=== PATIENT | male | born 1950 | race African-American/Black ===

== ENCOUNTER 2016-08-24 15:23 | Emergency (ER) | payer MEDICARE, OTHER ==
[~2016-08-24] VITALS: Ht 170.2 cm; Wt 85.4 kg
[~2016-08-24 15:23] MED LIST: ALFU10TA2 PO; CALC0.5C6 PO; DAPT500P IV; METO50TA PO; MIRT30TA PO; NIFE20CA PO; PERC5TAB12 PO; PRIL40CA PO; VIAG100T PO
[2016-08-24 16:24] VITALS: BP 115/67; PULSE 71; RESP 18; TEMP 97.8; O2SAT 97
[2016-08-24 16:27] VITALS: O2SAT 97
[2016-08-24] MEDS ORDERED: MIDO5TAB PO (16:57)
[2016-08-24] MEDS ORDERED: SEVEL800 PO (16:57)
[2016-08-24] MEDS ORDERED: ALFU10TA2 PO (16:57)
[2016-08-24 17:00] VITALS: BP 119/68; PULSE 80; RESP 18; O2SAT 97
--- NOTE | 2016-08-24 17:00 | PD ---
HPI Chief Complaint: Chest Pain Time Seen by Provider: 16:24 Travel History International Travel<30 days: No Contact w/Intl Traveler<30days: No Traveled to known affect area: No History of Present Illness HPI 65-year-old male complains of chest pain. Patient has history of end-stage renal disease on dialysis. Patient has dialysis Sunday and Sunday weekly. Patient states that he usually has transient chest pain during dialysis. Patient states that the chest pain Usually resolved with adjustment of the fluid from dialysis. Patient states that he has intermittent substernal chest pressure since this morning. Patient denies any pain radiation. Patient denies palpitation nausea diaphoresis. Patient denies any coughing congestion fever chills. Patient has history hypertension. Patient denies history diabetes or dyslipidemia. Patient states that he quit smoking 15 years ago. [facility] and states that he had a chemical stress test done about 4 months ago and was normal. EMS was called. Patient was given aspirin 325 mg by mouth and nitroglycerin prior to arrival. Patient denies any chest pain now. PFSH Past Medical History Hx Anticoagulant Therapy: No Arthritis: Yes Asthma: No Autoimmune Disease: No Blood Disorders: No Anxiety: Yes Depression: Yes Heart Rhythm Problems: No Cancer: No Cardiovascular Problems: Yes High Cholesterol: No Chemotherapy: No Chest Pain: Yes Congestive Heart Failure: No COPD: No Cerebrovascular Accident: No Diabetes: Yes Dialysis: Yes (3 TIMES A WEEK) Diminished Hearing: No Endocrine: Yes Gastrointestinal Disorders: Yes GERD: Yes Glaucoma: No Gout: Yes Genitourinary: Yes Headaches: Yes Hepatitis: No Hiatal Hernia: Yes Hypertension: Yes Immune Disorder: No Kidney Stones: No Medical other: Yes (GOUT) Musculoskeletal: Yes Neurologic: No Psychiatric: Yes Reproductive: No Respiratory: No Immunizations Current: Yes Myocardial Infarction: No Radiation Therapy: No Renal Failure: Yes Seizures: No Sickle Cell Disease: No Sleep Apnea: No Thyroid Disease: No Ulcer: No Tetanus Vaccination: Unknown Past Surgical History Abdominal Surgery: No AICD: No Arteriovenous Shunt: No Cardiac Surgery: No Ear Surgery: No Endocrine Surgery: No Eye Surgery: No Genitourinary Surgery: No Gynecologic Surgery: No Hysterectomy: No Insulin Pump: No Joint Replacement: No Oral Surgery: No Pacemaker: No Thoracic Surgery: No Other Surgery: Yes (peritoneal catheter for dialysis) Social History Alcohol Use: Yes (RARELY) Tobacco Use: No (QUIT 15 YEARS AGO) Substance Use: Yes (MARIJUANA RARELY) Allergies-Medications (Allergen,Severity, Reaction): Coded Allergies: *MDRO Multi-Drug Resistant Organism (Verified Adverse Reaction, Unknown, ) MRSA (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) Uncoded Allergies: BLOOD PRESSURE MEDS (OLD) (Allergy, Mild, HYPERTENSION, HEADACHE, 11/17/15) pt states this was several years ago - currently taking different meds for blood pressure Reported Meds & Prescriptions Reported Meds & Active Scripts Active Cubicin (Daptomycin) Infusion Bag 360 Mg IV AFTER DIALYSIS Quantity Sufficient to total # of doses ____ Stop date: Percocet 5-325 mg (Oxycodone/Acetaminophen) 1 Tab 1 Tab PO Q6H PRN Reported Alfuzosin Hcl Er (Alfuzosin HCl) 10 Mg Tab 10 Mg PO DAILY Nifedipine 20 Mg Cap 30 Mg PO DAILY Viagra (Sildenafil Citrate) 100 Mg Tab 100 Mg PO DAILY PRN Calcitriol 0.5 Mcg Cap 0.5 Mcg PO DAILY Mirtazapine 30 Mg Tab 30 Mg PO HS Prilosec 40 mg cap (Omeprazole) 40 Mg Cap 40 Mg PO DAILY Lopressor (Metoprolol Tartrate) 50 Mg Tab 50 Mg PO BID Review of Systems General / Constitutional: No: Fever Eyes: No: Visual changes HENT: No: Headaches Cardiovascular: Positive: Chest Pain or Discomfort Respiratory: No: Shortness of Breath Gastrointestinal: No: Abdominal Pain Genitourinary: No: Dysuria Musculoskeletal: No: Pain Skin: No Rash Neurologic: No: Weakness Psychiatric: No: Depression Endocrine: No: Polydipsia Hematologic/Lymphatic: No: Easy Bruising Physical Exam Narrative GENERAL: Well-nourished, well-developed patient. SKIN: Warm and dry. HEAD: Normocephalic. EYES: No scleral icterus. No injection or drainage. NECK: Supple, trachea midline. No JVD or lymphadenopathy. CARDIOVASCULAR: Regular rate and rhythm without murmurs, gallops, or rubs. RESPIRATORY: Breath sounds equal bilaterally. No accessory muscle use. GASTROINTESTINAL: Abdomen soft, non-tender, nondistended. MUSCULOSKELETAL: No cyanosis, or edema. BACK: Nontender without obvious deformity. No CVA tenderness. Neurologic exam normal. Data Data Last Documented VS Vital Signs Date Time Temp Pulse Resp B/P Pulse Ox O2 Delivery O2 Flow Rate FiO2 08/24/16 16:27 73 18 97 Room Air 08/24/16 16:24 97.8 115/67 Orders Electrocardiogram (08/24/16 16:24) Complete Blood Count With Diff (08/24/16 16:24) Comprehensive Metabolic Panel (08/24/16 16:24) Creatine Kinase (Cpk) (08/24/16 16:24) Troponin I (08/24/16 16:24) Prothrombin Time / Inr (Pt) (08/24/16 16:24) Act Partial Throm Time (Ptt) (08/24/16 16:24) Magnesium (Mg) (08/24/16 16:24) Phosphorus (Po4) (08/24/16 16:24) Chest, Single Ap (08/24/16 16:24) Iv Access Insert/Monitor (08/24/16 16:24) Ecg Monitoring (08/24/16 16:24) Oximetry (08/24/16 16:24) MDM Medical Decision Making Medical Screen Exam Complete: Yes Emergency Medical Condition: Yes Differential Diagnosis Differential diagnosis including angina, PA, PE, pneumothorax. Narrative Course 65-year-old male with chest pain. History of end-stage renal disease on dialysis. Zac Kim MD Aug 24, 2016 17:00
[2016-08-24] MEDS ORDERED: LIDO1KIT30 TOP (17:01)
[2016-08-24] MEDS ORDERED: PROS5TAB PO (17:04)
[2016-08-24] MEDS ORDERED: METO50TA PO (17:04)
[2016-08-24] MEDS ORDERED: MIRT45TA PO (17:04)
[2016-08-24] MEDS ORDERED: SENN8.6T19 PO (17:04)
[2016-08-24] MEDS ORDERED: OMEP20TA PO (17:04)
[2016-08-24] MEDS ORDERED: CHOL5000 PO (17:05)
--- NOTE | 2016-08-24 17:27 | RADRPT ---
EXAM DATE/TIME: 08/24/2016 16:47 [facility] COMPARISON: No previous studies available for comparison. INDICATIONS : Patient has had chest pain since this morning. MEDICAL HISTORY : None. SURGICAL HISTORY : None. ENCOUNTER: Initial ACUITY: 1 day PAIN SCORE: 0/10 LOCATION: chest FINDINGS: A single view of the chest demonstrates the lungs to be symmetrically aerated without evidence of mas s, infiltrate or effusion. The cardiomediastinal contours are unremarkable. Osseous structures are intact. Prominent thoracic spine osteophytes. CONCLUSION: Normal examination. Joaquim Limon MD on August 24, 2016 at 17:25 Board Certified Radiologist. This report was verified electronically.
[2016-08-24 17:33] LABS: BASOPHIL % 0.5 % (0.0-2.0); EOSINOPHIL # 0.3 TH/MM3 (0-0.4); EOSINOPHIL % 4.4 % (0.0-4.0); HEMATOCRIT 35.3 % (39.0-51.0); HEMO FLAGS DIFF FINAL; LYMPH % 23.6 % (9.0-44.0); LYMPHOCYTE # 1.4 TH/MM3 (1.0-4.8); MEAN CELL VOLUME 95.6 FL (80.0-100.0); MEAN CORPUSCULAR HEMOGLOBIN 31.2 PG (27.0-34.0); MEAN CORPUSCULAR HGB CONC 32.7 % (32.0-36.0); MONO % 5.4 % (0.0-8.0); NEUT % 66.1 % (16.0-70.0); PLATELET COUNT 133 TH/MM3 (150-450); RED BLOOD COUNT 3.69 MIL/MM3 (4.50-5.90); RED CELL DISTRIBUTION WIDTH 16.5 % (11.6-17.2)
[2016-08-24 17:41] LABS: APTT (PATIENT) 29.7 SEC (24.3-30.1)
[2016-08-24 18:13] LABS: ALKALINE PHOSPHATASE 94 U/L (45-117); ALT (GPT) 17 U/L (12-78); ANION GAP 8 MEQ/L (5-15); AST (GOT) 20 U/L (15-37); BICARBONATE 33.3 MEQ/L (21.0-32.0); BLOOD UREA NITROGEN 14 MG/DL (7-18); CHLORIDE 101 MEQ/L (98-107); CREATINE KINASE 134 U/L (39-308); GLOMERULAR FILTRATION RATE 13 ML/MIN (>89); SODIUM (NA) 142 MEQ/L (136-145); TOTAL BILIRUBIN ADULT 0.6 MG/DL (0.2-1.0)
[2016-08-24 18:29] LABS: POTASSIUM 4.7 MEQ/L (3.5-5.1)
[2016-08-24 18:35] VITALS: BP 137/76; PULSE 74; RESP 18; O2SAT 100
--- NOTE | 2016-08-24 18:39 | PD ---
Physical Exam Date Seen by Provider: Aug 24, 2016 Time Seen by Provider: 18:39 Narrative 65-year-old male came to the emergency room with history of chest pain. Patient has end-stage kidney disease and hemodialysis dependent. He was dialyzed this morning. He was seen by the previous ER physician. Please refer to his notes for further details on the history. The sign out was to follow-up on his blood test and chest x-ray report. Patient does have risks for coronary artery disease and it the blood tests are within normal limits he should be admitted to the chest pain center to be ruled out. All the blood test results of back and they are within acceptable limits except for his renal function which obviously is poor given his end-stage renal disease history. Patient will be admitted to the chest pain center. Data Data Last Documented VS Vital Signs Date Time Temp Pulse Resp B/P Pulse Ox O2 Delivery O2 Flow Rate FiO2 08/24/16 21:24 74 16 130/80 100 08/24/16 19:07 Room Air 08/24/16 16:24 97.8 Orders Electrocardiogram (08/24/16 16:24) Complete Blood Count With Diff (08/24/16 16:24) Comprehensive Metabolic Panel (08/24/16 16:24) Creatine Kinase (Cpk) (08/24/16 16:24) Troponin I (08/24/16 16:24) Prothrombin Time / Inr (Pt) (08/24/16 16:24) Act Partial Throm Time (Ptt) (08/24/16 16:24) Magnesium (Mg) (08/24/16 16:24) Phosphorus (Po4) (08/24/16 16:24) Chest, Single Ap (08/24/16 16:24) Iv Access Insert/Monitor (08/24/16 16:24) Ecg Monitoring (08/24/16 16:24) Oximetry (08/24/16 16:24) Troponin I (08/24/16 20:00) Labs Laboratory Tests Test 08/24/16 08/24/16 17:10 19:56 White Blood Count 6.0 TH/MM3 Red Blood Count 3.69 MIL/MM3 Hemoglobin 11.5 GM/DL Hematocrit 35.3 % Mean Corpuscular Volume 95.6 FL Mean Corpuscular Hemoglobin 31.2 PG Mean Corpuscular Hemoglobin 32.7 % Concent Red Cell Distribution Width 16.5 % Platelet Count 133 TH/MM3 Mean Platelet Volume 9.6 FL Neutrophils (%) (Auto) 66.1 % Lymphocytes (%) (Auto) 23.6 % Monocytes (%) (Auto) 5.4 % Eosinophils (%) (Auto) 4.4 % Basophils (%) (Auto) 0.5 % Neutrophils # (Auto) 4.0 TH/MM3 Lymphocytes # (Auto) 1.4 TH/MM3 Monocytes # (Auto) 0.3 TH/MM3 Eosinophils # (Auto) 0.3 TH/MM3 Basophils # (Auto) 0.0 TH/MM3 CBC Comment DIFF FINAL Differential Comment Prothrombin Time 11.0 SEC Prothromb Time International 1.0 RATIO Ratio Activated Partial 29.7 SEC Thromboplast Time Sodium Level 142 MEQ/L Potassium Level 4.7 MEQ/L Chloride Level 101 MEQ/L Carbon Dioxide Level 33.3 MEQ/L Anion Gap 8 MEQ/L Blood Urea Nitrogen 14 MG/DL Creatinine 5.39 MG/DL Estimat Glomerular Filtration 13 ML/MIN Rate Random Glucose 83 MG/DL Calcium Level 8.3 MG/DL Phosphorus Level 2.4 MG/DL Magnesium Level 2.0 MG/DL Total Bilirubin 0.6 MG/DL Aspartate Amino Transf 20 U/L (AST/SGOT) Alanine Aminotransferase 17 U/L (ALT/SGPT) Alkaline Phosphatase 94 U/L Total Creatine Kinase 134 U/L Troponin I LESS THAN 0.02 LESS THAN 0.02 NG/ML NG/ML Total Protein 6.8 GM/DL Albumin 3.4 GM/DL [facility] Supervised Visit with TR: No Interpretation(s) Twelve-lead EKG was reviewed by me. Normal sinus rhythm, left axis deviation, nonspecific ST-T wave changes. Heart rate of 70 bpm. Narrative Course 6:57 PM patient told me that he had a chemical stress test done 3-4 months ago at [place] which is part of the workup since he's on the transplant list. In which case I would be okay with a negative second troponin to send him home. Second troponin is due at 8 PM. 9:19 PM repeat troponin is negative. I'll discharge the patient home. He is anxious to go home at this point. Diagnosis Primary Impression: Chest pain Qualified Code: R07.9 - Chest pain, unspecified type Additional Impressions: Nonspecific chest pain End stage renal disease Dependent on hemodialysis Referrals: Primary Care Physician 3 days Additional Instruction: Please follow-up with your primary care in couple days. Please return to the ER if the condition worsens or any other new concerns. Med/Other Pt SpecificInfo: No Change to Meds Disposition: 01 DISCHARGE HOME Condition: Stable Olga Couch MD Aug 24, 2016 18:39
[2016-08-24 19:07] VITALS: BP 136/81; PULSE 75; RESP 17; O2SAT 100
[2016-08-24 21:24] VITALS: BP 130/80
--- NOTE | 2016-08-25 23:28 | EKG ---
Date Performed: 08/24/2016 Time Performed: 16:24:49 PTAGE: 65 years EKG: Sinus rhythm LEFT ANTERIOR FASCICULAR BLOCK VOLTAGE CRITERIA FOR LVH ABNORMAL ECG PREVIOUS TRACING : 11/17/2015 17.43 DOCTOR: Mai Santo Interpretating Date/Time 08/25/2016 23:26:47
== END 2016-08-24 21:24 | disposition home or self-care (01) ==
LOC: NEPA 15:23
DX: R07.9 Chest pain, unspecified (principal); N18.6 End stage renal disease; I12.0 Hypertensive chronic kidney disease with stage 5 chronic kidney disease or end stage renal disease; R94.31 Abnormal electrocardiogram [ECG] [EKG]; Z99.2 Dependence on renal dialysis; Z87.39 Personal history of other diseases of the musculoskeletal system and connective tissue; Z86.59 Personal history of other mental and behavioral disorders; Z86.79 Personal history of other diseases of the circulatory system; Z87.19 Personal history of other diseases of the digestive system; Z87.891 Personal history of nicotine dependence
CPT/HCPCS: 71010; 80053; 82550; 83735; 84100; 84484; 85025; 85610; 85730; 93005

== ENCOUNTER 2017-02-23 15:56 | Inpatient (IN) | payer OTHER ==
[~2017-02-23] VITALS: Ht 175.3 cm; Wt 86.8 kg
[2017-02-23] VITALS (10 sets, daily range): BP systolic 73–142; BP diastolic 51–81; PULSE 77–100; RESP 17–38; TEMP 98.4–98.5; O2SAT 96–100
[~2017-02-23 15:56] MED LIST changes: -CALC0.5C6 PO; +CHOL5000 PO; -DAPT500P IV; +LIDO1KIT30 TOP; +MIDO5TAB PO; -MIRT30TA PO; +MIRT45TA PO; -NIFE20CA PO; +OMEP20TA PO; -PERC5TAB12 PO; -PRIL40CA PO; +PROS5TAB PO; +SENN8.6T19 PO; +SEVEL800 PO; -VIAG100T PO
[2017-02-23] MEDS ORDERED: FUROSEMIDE 40 MG/4 ML VIAL IVP ONE (16:00)
[2017-02-23] MEDS ORDERED: SODIUM CHLORIDE 0.9% FLUSH 10 ML FLUSH IVF PRN ×2 (16:00→18:45)
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
[2017-02-23] MEDS ORDERED: LIDOCAINE HCL 1% 50 ML VIAL ONE (16:10)
[2017-02-23 16:21] LABS: AUTOMATED NEUTROPHIL # 6.8 TH/MM3 (1.8-7.7); BASOPHIL # 0.1 TH/MM3 (0-0.2); BASOPHIL % 0.7 % (0.0-2.0); EOSINOPHIL # 0.4 TH/MM3 (0-0.4); EOSINOPHIL % 2.9 % (0.0-4.0); HEMATOCRIT 41.2 % (39.0-51.0); LYMPH % 39.3 % (9.0-44.0); LYMPHOCYTE # 5.5 TH/MM3 (1.0-4.8); MEAN CELL VOLUME 105.9 FL (80.0-100.0); MEAN CORPUSCULAR HEMOGLOBIN 31.8 PG (27.0-34.0); MEAN CORPUSCULAR HGB CONC 30.1 % (32.0-36.0); MONO % 8.1 % (0.0-8.0); PLATELET COUNT 251 TH/MM3 (150-450); RED BLOOD COUNT 3.89 MIL/MM3 (4.50-5.90); WHITE BLOOD COUNT 13.9 TH/MM3 (4.0-11.0)
[2017-02-23 16:24] LABS: HEMO FLAGS AUTO DIFF
[2017-02-23 16:38] LABS: PROTHROMBIN TIME - PATIENT 11.2 SEC (9.8-11.6)
[2017-02-23 16:42] LABS: APTT (PATIENT) 28.2 SEC (24.3-30.1)
[2017-02-23 16:43] LABS: ALKALINE PHOSPHATASE 91 U/L (45-117); TOTAL BILIRUBIN ADULT 0.6 MG/DL (0.2-1.0)
[2017-02-23 16:50] LABS: ALT (GPT) 15 U/L (12-78); ANION GAP 29 MEQ/L (5-15); AST (GOT) 16 U/L (15-37); BICARBONATE 8.2 MEQ/L (21.0-32.0); BLOOD UREA NITROGEN 29 MG/DL (7-18); CHLORIDE 109 MEQ/L (98-107); GLOMERULAR FILTRATION RATE 7 ML/MIN (>89); SODIUM (NA) 146 MEQ/L (136-145)
[2017-02-23 16:51] LABS: POTASSIUM 5.1 MEQ/L (3.5-5.1)
[2017-02-23 17:03] LABS: BANDS 1 % (0-6); EOSINOPHILS 2 % (0-4); MYELOCYTES 1 % (0-0); NEUTROPHIL # MANUAL DIFF 6.3 TH/MM3 (1.8-7.7); PLATELET ESTIMATE SMEAR NORMAL (NORMAL); PLATELET MORPHOLOGY NORMAL (NORMAL); POLYS (SEG NEUTROPHILS) 43 % (16-70); SCAN/DIFF FINAL DIFF MANUAL; WBC DIFF SAMPLE 100
[2017-02-23] MEDS: RESP: ALBUTEROL 2.5 MG/3 ML NEB (SCH) INH (17:20)
[2017-02-23] MEDS ORDERED: SODIUM CHLOR 0.9% 1000 ML INJ 1,000 ML IV SCH (18:33)
[2017-02-23] MEDS ORDERED: LACTULOSE SYRUP 20 GM/30 ML CUP PO PRN (18:45)
[2017-02-23] MEDS ORDERED: SENNOSIDES 8.6 MG TAB PO PRN (18:45)
[2017-02-23] MEDS ORDERED: SODIUM CHLORIDE 0.9% FLUSH 10 ML FLUSH IV FLUSH PRN (18:45)
[2017-02-23] MEDS ORDERED: MORPHINE SULFATE 4 MG/ML INJ IV PRN (18:45)
[2017-02-23] MEDS ORDERED: ONDANSETRON HCL 4 MG/2 ML VIAL IV PRN (18:45)
[2017-02-23] MEDS ORDERED: BISACODYL 10 MG SUPP RECTAL PRN (18:45)
[2017-02-23] MEDS ORDERED: MISCELLANEOUS NURSING INFORMATION XX SCH (18:45)
[2017-02-23] MEDS ORDERED: CHLORHEXIDINE GLUCONATE 2 % 1 PACK (2 CLOTHS) TOP PRN (18:45)
[2017-02-23] MEDS ORDERED: ACETAMINOPHEN 325 MG TAB PO PRN (18:45)
[2017-02-23] MEDS ORDERED: RESP: ALBUTEROL 2.5 MG/3 ML NEB (PRN) INH (18:45)
[2017-02-23] MEDS ORDERED: ACETAMINOPHEN/HYDROcodone 325 MG/5 MG TAB PO PRN (18:45)
[2017-02-23] MEDS ORDERED: MAGNESIUM HYDROXIDE SUSP 30 ML CUP PO PRN (18:45)
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
[2017-02-23 19:18] LABS: APTT (PATIENT) 25.5 SEC (24.3-30.1)
[2017-02-23] MEDS: RESP: ALBUTEROL 2.5 MG/IPRATROPIUM 0.5 MG NEB (SCH) INH (19:43)
--- NOTE | 2017-02-23 20:11 | RADRPT ---
EXAM DATE/TIME: 02/23/2017 18:44 [facility] COMPARISON: CHEST SINGLE AP, August 24, 2016, 16:47. INDICATIONS : Shortness of breath and central line placement. MEDICAL HISTORY : None. SURGICAL HISTORY : None. ENCOUNTER: Initial ACUITY: 1 day PAIN SCORE: 0/10 LOCATION: Bilateral chest FINDINGS: A single view of the chest demonstrates a central line in place from the left internal jugular approa ch with the tip extending into the upper SVC/right brachiocephalic vein region. A pneumothorax is not seen. The heart size is normal. There is increased density at the bases bilaterally. There is stent material seen in the left axillary region. There is some hypertrophic change at the superior medial l eft third rib. CONCLUSION: 1. Left internal jugular central line in place with the tip overlying the upper SVC/distal right brac hiocephalic region. This can be used in this position. 2. Bibasilar areas of atelectasis or consolidation. The study does appear to be taken with a poor ins piratory effort suggesting atelectasis or compressive changes are more likely. Polo Anaya MD on February 23, 2017 at 20:07 Board Certified Radiologist. This report was verified electronically.
[2017-02-23] MEDS: SODIUM CHLORIDE 0.9% FLUSH 10 ML FLUSH IV FLUSH SCH (20:27)
[2017-02-23 20:33] LABS: BLOOD GAS BASE EXCESS -7.4 mmol/L (-2-2); BLOOD GAS CARBOXYHEMOGLOBIN 1.1 % (0-4); BLOOD GAS HCO3 17 mmol/L (22-26); BLOOD GAS METHEMOGLOBIN 1.4 % (0-2); BLOOD GAS O2 HGB SATURATION 92 % (90-100); BLOOD GAS OXYGEN CONTENT 15.2 Vol % (12.0-20.0); BLOOD GAS PCO2 32 mmHg (38-42); BLOOD GAS PO2 81 mmHg (61-120); BLOOD GAS TOTAL HGB 11.7 G/DL (12.0-16.0); CRITICAL VALUE NO; TEMP CORR TO 98.6
[2017-02-23 20:34] LABS: DRAW SITE RT RADIAL; FIO2 40 %; NUMBER OF ARTERIAL PUNCTURES 1; OXYGEN DEVICE BIPAP; STAT NO; ULNAR PULSE PRESENT; VENT SETTINGS IPAP 12/EPAP 6
[2017-02-23] MEDS ORDERED: DOCUSATE SODIUM 50 MG/SENNA 8.6 MG TAB PO SCH (21:00)
[2017-02-23] MEDS: DOCUSATE SODIUM 50 MG/SENNA 8.6 MG TAB PO SCH (21:00)
[2017-02-23 21:43] LABS: BETA-HYDROXYBUTYRATE 0.64 MMOL/L (0.00-0.39)
[2017-02-23] MEDS: CHOLECALCIFEROL (VIT D3) 5000 UNIT CAP PO SCH (21:48)
[2017-02-23] MEDS: MIRTAZAPINE 15 MG TAB PO SCH (21:48)
[2017-02-23] MEDS: METOPROLOL TARTRATE 50 MG TAB PO SCH (21:48)
[2017-02-24] VITALS (18 sets, daily range): BP systolic 96–136; BP diastolic 56–77; PULSE 64–80; RESP 16–23; TEMP 97.6–98.8; O2SAT 96–100
[2017-02-24] MEDS: RESP: ALBUTEROL 2.5 MG/IPRATROPIUM 0.5 MG NEB (SCH) INH ×6 (00:19→19:35)
[2017-02-24] MEDS: CHLORHEXIDINE GLUCONATE 2 % 1 PACK (2 CLOTHS) TOP SCH ×2 (03:26→21:08)
[2017-02-24 04:25] LABS: AUTOMATED NEUTROPHIL # 12.5 TH/MM3 (1.8-7.7); BASOPHIL % 0.2 % (0.0-2.0); HEMATOCRIT 31.9 % (39.0-51.0); HEMO FLAGS DIFF FINAL; LYMPH % 5.9 % (9.0-44.0); LYMPHOCYTE # 0.8 TH/MM3 (1.0-4.8); MEAN CELL VOLUME 98.6 FL (80.0-100.0); MEAN CORPUSCULAR HEMOGLOBIN 31.8 PG (27.0-34.0); MEAN CORPUSCULAR HGB CONC 32.3 % (32.0-36.0); MONO % 4.1 % (0.0-8.0); NEUT % 89.8 % (16.0-70.0); PLATELET COUNT 156 TH/MM3 (150-450); RED BLOOD COUNT 3.24 MIL/MM3 (4.50-5.90); RED CELL DISTRIBUTION WIDTH 15.9 % (11.6-17.2); WHITE BLOOD COUNT 13.9 TH/MM3 (4.0-11.0)
[2017-02-24 04:50] LABS: PROTHROMBIN TIME - PATIENT 11.1 SEC (9.8-11.6)
[2017-02-24 05:08] LABS: ALKALINE PHOSPHATASE 72 U/L (45-117); ALT (GPT) 12 U/L (12-78); ANION GAP 9 MEQ/L (5-15); AST (GOT) 11 U/L (15-37); BICARBONATE 20.2 MEQ/L (21.0-32.0); BLOOD UREA NITROGEN 35 MG/DL (7-18); CHLORIDE 116 MEQ/L (98-107); GLOMERULAR FILTRATION RATE 7 ML/MIN (>89); MAGNESIUM 3.6 MG/DL (1.5-2.5); POTASSIUM 5.3 MEQ/L (3.5-5.1); SODIUM (NA) 145 MEQ/L (136-145); TOTAL BILIRUBIN ADULT 0.6 MG/DL (0.2-1.0)
[2017-02-24] MEDS: SODIUM CHLORIDE 0.9% FLUSH 10 ML FLUSH IVF SCH (08:17)
[2017-02-24] MEDS: SODIUM CHLORIDE 0.9% FLUSH 10 ML FLUSH IV FLUSH SCH ×2 (08:17→21:08)
[2017-02-24] MEDS: DOCUSATE SODIUM 50 MG/SENNA 8.6 MG TAB PO SCH ×2 (08:18→21:05)
[2017-02-24] MEDS: METOPROLOL TARTRATE 50 MG TAB PO SCH ×2 (08:18→21:00)
[2017-02-24] MEDS: MIDODRINE 5 MG TAB PO SCH ×2 (08:18→08:25)
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
[2017-02-24] MEDS: PANTOPRAZOLE SOD 20 MG DELAYED RELEASE TAB PO SCH (09:00)
[2017-02-24] MEDS ORDERED: FAMOTIDINE 20 MG/2 ML VIAL IV PUSH SCH (09:00)
[2017-02-24] MEDS: TAMSULOSIN HCL 0.4 MG CAP PO SCH (09:22)
[2017-02-24] MEDS: SEVELAMER CARBONATE 800 MG TAB PO SCH ×3 (09:22→17:37)
--- NOTE | 2017-02-24 09:48 | EKG ---
Date Performed: 02/23/2017 Time Performed: 16:05:18 PTAGE: 66 years EKG: Sinus rhythm POSSIBLE LEFT ATRIAL ENLARGEMENT POSSIBLE RIGHT VENTRICULAR CONDUCTION DELAY LEFT ANTERIOR FASCICULA R BLOCK POSSIBLE LEFT VENTRICULAR HYPERTROPHY ABNORMAL ECG PREVIOUS TRACING : 08/24/2016 16.24 DOCTOR: Joaquim Quintero Interpretating Date/Time 02/24/2017 09:46:47
[2017-02-24] MEDS ORDERED: SODIUM CHLOR 0.9% 1000 ML INJ 1,000 ML OTHER PRN ×2 (11:47)
[2017-02-24] MEDS ORDERED: SODIUM CHLOR 0.9% 1000 ML INJ 1,000 ML IV PRN (11:47)
[2017-02-24] MEDS ORDERED: EPOETIN ALFA 10,000 UNITS/ML VIAL IV PRN (12:00)
[2017-02-24] MEDS ORDERED: NITROGLYCERIN 0.4 MG SL 25 TABS/BTL SL PRN (12:00)
[2017-02-24] MEDS ORDERED: GELATIN 12 MM/7 MM FOAM TOP PRN (12:00)
[2017-02-24] MEDS ORDERED: MANNITOL 12.5 GM/50 ML VIAL IV PRN (12:00)
[2017-02-24] MEDS ORDERED: SODIUM CHLORIDE 0.9% FLUSH 10 ML FLUSH IV FLUSH PRN (12:00)
[2017-02-24] MEDS ORDERED: HEPARIN SODIUM - IV 10,000 UNITS/10 ML VIAL PRN (12:00)
[2017-02-24] MEDS ORDERED: GENTAMICIN SULFATE (DIALYSIS USE ONLY) 20 MG/2 ML VIAL IV PRN (12:00)
[2017-02-24] MEDS ORDERED: cloNIDine HCL 0.1 MG TAB PO PRN (12:00)
[2017-02-24] MEDS ORDERED: HEPARIN SODIUM - IV 10,000 UNITS/10 ML VIAL IVF PRN (12:00)
[2017-02-24] MEDS ORDERED: ALBUMIN HUMAN 25% 25 GM/100 ML BAGP IV PRN (12:00)
[2017-02-24] MEDS ORDERED: diphenhydrAMINE HCL 25 MG CAP PO PRN (12:00)
[2017-02-24] MEDS ORDERED: ACETAMINOPHEN 325 MG TAB PO PRN (12:00)
[2017-02-24] MEDS ORDERED: ONDANSETRON HCL 4 MG/2 ML VIAL IV PRN (12:00)
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
[2017-02-24] MEDS ORDERED: LIDOCAINE PRILOCAINE SCH (20:30)
[2017-02-24] MEDS ORDERED: FINASTERIDE 5 MG TAB PO SCH (21:00)
[2017-02-24] MEDS: MIRTAZAPINE 15 MG TAB PO SCH (21:04)
[2017-02-24] MEDS: CHOLECALCIFEROL (VIT D3) 5000 UNIT CAP PO SCH (21:05)
[2017-02-25] VITALS (7 sets, daily range): BP systolic 95–145; BP diastolic 48–77; PULSE 74–88; RESP 16–18; TEMP 97–98.8; O2SAT 95–100
[2017-02-25] MEDS: RESP: ALBUTEROL 2.5 MG/IPRATROPIUM 0.5 MG NEB (SCH) INH ×5 (04:00→15:21)
[2017-02-25 04:57] LABS: HEMATOCRIT 28.8 % (39.0-51.0); MEAN CELL VOLUME 97.7 FL (80.0-100.0); MEAN CORPUSCULAR HEMOGLOBIN 32.5 PG (27.0-34.0); MEAN CORPUSCULAR HGB CONC 33.3 % (32.0-36.0); PLATELET COUNT 144 TH/MM3 (150-450); RED BLOOD COUNT 2.95 MIL/MM3 (4.50-5.90); RED CELL DISTRIBUTION WIDTH 15.7 % (11.6-17.2); REVIEW FLAG FINAL; WHITE BLOOD COUNT 8.3 TH/MM3 (4.0-11.0)
[2017-02-25 05:17] LABS: POTASSIUM 3.5 MEQ/L (3.5-5.1)
--- NOTE | 2017-02-25 06:14 | RADRPT ---
EXAM DATE/TIME: 02/25/2017 05:23 [facility] COMPARISON: CHEST SINGLE AP, February 23, 2017, 18:44. INDICATIONS : Congestion. MEDICAL HISTORY : None. SURGICAL HISTORY : None. ENCOUNTER: Subsequent ACUITY: 3 days PAIN SCORE: 4/10 LOCATION: Bilateral chest FINDINGS: A single view of the chest demonstrates left central line in superior vena cava. Tortuous aorta. Hear t size within normal limits. No focal consolidation or effusion. CONCLUSION: 1. No focal consolidation or effusion. Tortuous aorta. Stephen Selby MD on February 25, 2017 at 6:10 Board Certified Radiologist. This report was verified electronically.
[2017-02-25] MEDS: TAMSULOSIN HCL 0.4 MG CAP PO SCH (09:07)
[2017-02-25] MEDS: PANTOPRAZOLE SOD 20 MG DELAYED RELEASE TAB PO SCH (09:07)
[2017-02-25] MEDS: DOCUSATE SODIUM 50 MG/SENNA 8.6 MG TAB PO SCH (09:07)
[2017-02-25] MEDS: SEVELAMER CARBONATE 800 MG TAB PO SCH ×3 (09:07→17:51)
[2017-02-25] MEDS: SODIUM CHLORIDE 0.9% FLUSH 10 ML FLUSH IVF SCH (09:08)
[2017-02-25] MEDS: SODIUM CHLORIDE 0.9% FLUSH 10 ML FLUSH IV FLUSH SCH (09:08)
[2017-02-25] MEDS: METOPROLOL TARTRATE 50 MG TAB PO SCH (09:09)
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
[2017-02-27 08:22] LABS: BLOOD GAS BASE EXCESS -5.2 mmol/L (-2-2); BLOOD GAS CARBOXYHEMOGLOBIN 0.7 % (0-4); BLOOD GAS HCO3 20 mmol/L (22-26); BLOOD GAS METHEMOGLOBIN 0.8 % (0-2); BLOOD GAS O2 HGB SATURATION 93 % (90-100); BLOOD GAS OXYGEN CONTENT 15.2 Vol % (12.0-20.0); BLOOD GAS PCO2 38 mmHg (38-42); BLOOD GAS PO2 81 mmHg (61-120); BLOOD GAS TOTAL HGB 11.6 G/DL (12.0-16.0); CRITICAL VALUE NO; FIO2 50 %; TEMP CORR TO 98.6
[2017-02-27 08:23] LABS: STAT YES
[2017-02-28 17:56] LABS: OXYGEN DEVICE BiPAP; VENT SETTINGS IPAP12/EPAP5
[2017-02-28 17:57] LABS: DRAW SITE RT RADIAL; NUMBER OF ARTERIAL PUNCTURES 1; ULNAR PULSE PRESENT
== END 2017-02-25 19:15 | disposition home or self-care (01) | DRG 189 ==
LOC: NEPE 15:56 → NEDA 18:23 → HIMN 20:00 → N06A 02-24 19:28
PROVIDERS: ADMIT Hospitalist; ATTEND Hospitalist
PROC: 5A09357 Assistance with Respiratory Ventilation, Less than 24 Consecutive Hours, Continuous Positive Airway Pressure (ICD-10-PCS; principal; 2017-02-23)
PROC: 05HN33Z Insertion of Infusion Device into Left Internal Jugular Vein, Percutaneous Approach (ICD-10-PCS; 2017-02-23)
PROC: 5A1D00Z (ICD-10-PCS; 2017-02-24)
DX: J96.01 Acute respiratory failure with hypoxia (principal); T75.1XXA Unspecified effects of drowning and nonfatal submersion, initial encounter; N18.6 End stage renal disease; E87.2 Acidosis; E87.0 Hyperosmolality and hypernatremia; I95.9 Hypotension, unspecified; N25.81 Secondary hyperparathyroidism of renal origin; I12.0 Hypertensive chronic kidney disease with stage 5 chronic kidney disease or end stage renal disease; E11.22 Type 2 diabetes mellitus with diabetic chronic kidney disease; M10.9 Gout, unspecified; K21.9 Gastro-esophageal reflux disease without esophagitis; F41.9 Anxiety disorder, unspecified; F32.9 Major depressive disorder, single episode, unspecified; M19.90 Unspecified osteoarthritis, unspecified site; D53.9 Nutritional anemia, unspecified; K44.9 Diaphragmatic hernia without obstruction or gangrene; N40.0 Benign prostatic hyperplasia without lower urinary tract symptoms; M81.0 Age-related osteoporosis without current pathological fracture; D63.1 Anemia in chronic kidney disease; Y93.11 Activity, swimming; Z87.891 Personal history of nicotine dependence; Z99.2 Dependence on renal dialysis
CPT/HCPCS: 36600; 71010; 80053; 80069; 82010; 82140; 82150; 82805; 82948; 83605; 83690; 83735; 84100; 84443; 84484; 85007; 85025; 85027; 85384; 85610; 85730; 87641; 90935; 93005; 94002; 94003; 94640; 94664; J7030; J7613

== ENCOUNTER 2017-08-16 20:00 | Emergency (ER) | payer OTHER, MEDICARE ==
[~2017-08-16] VITALS: Ht 172.7 cm; Wt 78.0 kg
[2017-08-16 20:00] VITALS: BP 178/90; PULSE 90; RESP 16; TEMP 99.3; O2SAT 100
[~2017-08-16 20:00] MED LIST changes: -OMEP20TA PO; +OMEP20TA93 PO
[2017-08-16 20:51] VITALS: BP 180/93; PULSE 91; RESP 18; O2SAT 99
--- NOTE | 2017-08-16 21:40 | RADRPT ---
EXAM DATE/TIME: 08/16/2017 21:17 [facility] COMPARISON: No previous studies available for comparison. INDICATIONS : Lower neck pain and difficulty swallowing, possible foreign body. RADIATION DOSE: 18.36 CTDIvol (mGy) MEDICAL HISTORY : Hypertension. Diabetes mellitus type 2. Renal insufficiency. SURGICAL HISTORY : Appendectomy. ENCOUNTER: Initial ACUITY: 2 days PAIN SCORE: 9/10 LOCATION: Bilateral lower neck. TECHNIQUE: Volumetric scanning of the neck was performed. Using automated exposure control and adjustment of th e mA and/or kV according to patient size, radiation dose was kept as low as reasonably achievable to obtain optimal diagnostic quality images. DICOM format image data is available electronically for re view and comparison. FINDINGS: NASOPHARYNX: The nasopharyngeal airway has a normal configuration. No mucosal thickening or mass is seen. OROPHARYNX: The intrinsic muscles of the tongue are symmetric. The tonsillar pillars are intact. The prevertebr al soft tissues are not thickened. LARYNX: The supraglottic, glottic, and infraglottic structures are intact. PARAPHARYNGEAL: The parapharyngeal space is intact. SALIVARY GLANDS: The parotid and submandibular glands are intact. LYMPH NODES: Nonspecific subcentimeter level II and level III lymph nodes bilaterally. No necrotic adenopathy. THYROID: Homogeneous enhancement without evidence of nodule. BONES: Multilevel degenerative spondylosis of the cervical spine with multilevel facet arthropathy. CONCLUSION: 1. No gross mass or radiopaque foreign body particularly in the lower cervical soft tissues to explai n patient's symptoms. 2. Nonspecific subcentimeter level II and level III cervical adenopathy. This may be reactive. 3. Degenerative spondylosis of the cervical spine. Monroe López MD on August 16, 2017 at 21:36 Board Certified Radiologist. This report was verified electronically.
[2017-08-16] MEDS ORDERED: LIDOCAINE VISCOUS 2% SOLN 15 ML UDC SWISH-SWAL ONE (22:30)
[2017-08-16] MEDS ORDERED: AMOXICILLIN 250 MG/5ML LIQ 100 ML BTL PO ONE (22:30)
[2017-08-16] MEDS ORDERED: PENICILLIN G BENZATHINE 1,200,000 UNITS/2 ML SYRINGE IM ONE (22:30)
[2017-08-16] MEDS ORDERED: diphenhydrAMINE HCL ELIXIR 12.5 MG/5 ML CUP PO ONE (22:30)
[2017-08-17] VITALS: BP 167/71; PULSE 76; RESP 18; O2SAT 97
[2017-08-17] MEDS ORDERED: MAGICPED SWISH-SWAL (00:25)
[2017-08-17] MEDS ORDERED: AMOX250S2 PO (00:25)
--- NOTE | 2017-08-17 00:26 | PD ---
HPI Chief Complaint: GI Complaint Time Seen by Provider: 20:48 Travel History International Travel<30 days: No Contact w/Intl Traveler<30days: No Traveled to known affect area: No History of Present Illness HPI pt has sore throat after after taking his nighttime meds which were very small tiny pills which he actually broke in half but is convinced that they were stuck in his throat and has been spitting he said since last night and not being able to swallow his saliva he says he is got no voice change she does not seem to be in any distress no respiratory distress no vomiting no choking he has a spit to 1 bottle with him when he said his all his life is been going for the last 12 hours, [facility] Past Medical History Hx Anticoagulant Therapy: No Arthritis: Yes (knees, foot, ankle) Asthma: No Autoimmune Disease: No Blood Disorders: No Anxiety: Yes Depression: Yes Heart Rhythm Problems: No Cancer: No Cardiovascular Problems: No High Cholesterol: No Chemotherapy: No Chest Pain: Yes Congestive Heart Failure: No COPD: No Cerebrovascular Accident: No Diabetes: Yes Patient Takes Glucophage: Yes Dialysis: Yes (3 TIMES A WEEK) Diminished Hearing: No Endocrine: No Gastrointestinal Disorders: Yes GERD: Yes Glaucoma: No Gout: Yes Genitourinary: Yes Headaches: Yes Hepatitis: No Hiatal Hernia: Yes Heparin Induced Thrombocytopen: No Hypertension: Yes Immune Disorder: No Implanted Vascular Access Dvce: No Kidney Stones: No Medical other: Yes (GOUT) Musculoskeletal: Yes Neurologic: No Psychiatric: No Reproductive: No Respiratory: No Immunizations Current: Yes Myocardial Infarction: No Radiation Therapy: No Renal Failure: Yes (End stage) Seizures: No Sickle Cell Disease: No Sleep Apnea: No Thyroid Disease: No Ulcer: No Tetanus Vaccination: Unknown Influenza Vaccination: Yes Past Surgical History Abdominal Surgery: Yes (appendectomy) AICD: No Arteriovenous Shunt: No Cardiac Surgery: No Ear Surgery: No Endocrine Surgery: No Eye Surgery: No Genitourinary Surgery: No Gynecologic Surgery: No Hysterectomy: No Insulin Pump: No Joint Replacement: No Neurologic Surgery: No Oral Surgery: No Pacemaker: No Thoracic Surgery: No Other Surgery: Yes (peritoneal catheter for dialysis) Social History Alcohol Use: Yes (RARELY) Tobacco Use: No (QUIT 15 YEARS AGO) Substance Use: No Allergies-Medications (Allergen,Severity, Reaction): Uncoded Allergies: BLOOD PRESSURE MEDS (OLD) (Allergy, Mild, HYPERTENSION, HEADACHE, 11/17/15) pt states this was several years ago - currently taking different meds for blood pressure Reported Meds & Prescriptions Reported Meds & Active Scripts Active Magic Mouthwash Pediatric/Adult Liq (Lidocaine/Diphenhydr/Alum/Mg/Simeth) 60 Ml Susp 5 Ml SWISH-SWAL ACHS Each 5mL contains: Diphenydramine 4.5mg, Viscous Lidocaine 2% 10mg, Maalox Advanced Regular Strength 2.7ml Amoxicillin Liq (Amoxicillin) 250 Mg/5 Ml Susp 500 Mg PO TID Reported Vitamin D3 (Cholecalciferol) 5,000 Unit Cap 5,000 Units PO HS Mirtazapine 45 Mg Tab 45 Mg PO HS Omeprazole 20 Mg Tab 20 Mg PO BID Proscar (Finasteride) 5 Mg Tab 5 Mg PO HS Do not crush. Metoprolol Tartrate 50 Mg Tab 50 Mg PO BID Senna-S 8.6-50 mg (Sennosides-Docusate Sodium) 1 Tab Tab 1 Tab PO HS Lido-Prilo Fazal Pack 2.5-2.5 % (Lidocaine-Prilocaine) 1 Kit Kit 1 Applic TOP TUTHSA Midodrine 5 Mg Tab 5 Mg PO TUTHSA Renvela (Sevelamer Carbonate) 800 Mg Tab 2,400 Mg PO TIDAC Alfuzosin ER 24 HR 10 Mg Tab 10 Mg PO DAILY Review of Systems Except as stated in HPI: all other systems reviewed are Neg HENT: Positive: Sore Throat, Other (Unable to swallow his own saliva) Physical Exam Narrative GENERAL: No apparent distress no choking no voice changes no respiratory distress he is not tripoding or any signs of airway compromise SKIN: Warm and dry. HEAD: Atraumatic. Normocephalic. EYES: Pupils equal and round. No scleral icterus. No injection or drainage. ENT: No nasal bleeding or discharge. Mucous membranes pink and moist. Posterior pharynx is erythematous but no signs of foreign bodies or pill stuck in his throat by looking with a tongue blade NECK: Trachea midline. No JVD. CARDIOVASCULAR: Regular rate and rhythm. RESPIRATORY: No accessory muscle use. Clear to auscultation. Breath sounds equal bilaterally. GASTROINTESTINAL: Abdomen soft, non-tender, nondistended. Hepatic and splenic margins not palpable. MUSCULOSKELETAL: Extremities without clubbing, cyanosis, or edema. No obvious deformities. NEUROLOGICAL: Awake and alert. No obvious cranial nerve deficits. Motor grossly within normal limits. Five out of 5 muscle strength in the arms and legs. Normal speech. PSYCHIATRIC: Appropriate mood and affect; insight and judgment normal. Data Data Last Documented VS Vital Signs Date Time Temp Pulse Resp B/P (MAP) Pulse Ox O2 Delivery O2 Flow Rate FiO2 08/17/17 00:36 08/17/17 00:00 76 18 97 Room Air 08/16/17 20:[address] Soft Tiss Neck W/O Iv Cont (08/16/17 ) Influenzae A/B Antigen (08/16/17 21:04) Group A Rapid Strep Screen (08/16/17 21:04) Penicillin G Benzathine Inj (Bicillin L- (08/16/17 22:30) Amoxicillin 250 Mg/5ml Liq (Trimox 250 M (08/16/17 22:30) Diphenhydramine Liq (Benadryl Liq) (08/16/17 22:30) Lidocaine 2% Viscous (Xylocaine 2% Visco (08/16/17 22:30) Ed Discharge Order (08/17/17 00:32) MDM Medical Decision Making Medical Screen Exam Complete: Yes Emergency Medical Condition: Yes Differential Diagnosis esophagitis due to pill . vs strep throat vs GERD other Narrative Course GI coctail and feels much better given maalox rx lidocaine RX Strep Positive and Amoxicillin given after GI cocktail with benadryl liquid and D/C , no need for further ER eval or imaging Diagnosis Primary Impression: Strep pharyngitis Patient Instructions: General Instructions, Strep Throat (ED) Scripts Rlroybzbqiyehky-Zstfegrdz-Oou-Alum-Simeth Liq (Magic Mouthwash Pediatric/Adult Liq) 60 Ml Susp 5 ML SWISH-SWAL ACHS for Mouth sores, #60 ML 0 Refills Each 5mL contains: Diphenydramine 4.5mg, Viscous Lidocaine 2% 10mg, Maalox Advanced Regular Strength 2.7ml Prov: Bonilla Fragoso MD 08/17/17 Amoxicillin Liq (Amoxicillin Liq) 250 Mg/5 Ml Susp 500 MG PO TID for Infection, #300 ML 0 Refills Prov: Bonilla Fragoso MD 08/17/17 Bonilla Fragoso MD Aug 17, 2017 00:26
== END 2017-08-17 00:38 | disposition home or self-care (01) ==
LOC: NEPC 20:00
DX: J02.0 Streptococcal pharyngitis (principal); B95.0 Streptococcus, group A, as the cause of diseases classified elsewhere; I10 Essential (primary) hypertension; E11.9 Type 2 diabetes mellitus without complications; N28.9 Disorder of kidney and ureter, unspecified; F32.9 Major depressive disorder, single episode, unspecified; Z99.2 Dependence on renal dialysis; Z87.891 Personal history of nicotine dependence; Z79.899 Other long term (current) drug therapy
CPT/HCPCS: 70490; 87880